=== PATIENT | female | born 2000 | race Caucasian/White ===

== ENCOUNTER 2022-06-26 08:57 | Inpatient (IN) ==
[2022-06-26] MEDS ORDERED: SODIUM CHLORIDE 0.9% 1000ML 1,000 ML IV ONE ×2 (09:06→10:48)
[2022-06-26] MEDS ORDERED: ONDANSETRON INJ 2 MG/ML 2 ML VIAL IV STA (09:51)
[2022-06-26 10:04] LABS: Basophils # (auto) 0.05 K/uL (0-0.2); Basophils % (auto) 0.9 %; Eosinophils # (auto) 0.25 K/uL (0-0.50); Eosinophils % (auto) 4.7 %; Hematocrit (blood only) 42.1 % (34.1-44.9); Hemoglobin 15.1 g/dl (12.0-16.0); Immature Granulocytes # (auto) 0.01 K/uL (0.00-0.02); Immature Granulocytes % (auto) 0.2 %; Lymphocytes # (auto) 1.85 K/uL (1.2-3.4); Lymphocytes % (auto) 34.7 %; Mean Corpuscular Hgb Conc 35.9 g/dL (32.0-36.0); Mean Corpuscular Volume 89.2 fL (80.0-100.0); Monocytes # (auto) 0.32 K/uL (0.24-0.82); Neutrophils # (auto) 2.85 K/uL (1.4-6.5); Neutrophils % (auto) 53.5 %; Platelet Count 226 K/uL (130-400); RDW Coefficient of Variation 11.3 % (11.5-14.5); RDW Standard Deviation 36.4 fL (36.4-46.3); Red Blood Count 4.72 M/uL (3.93-5.22); White Blood Count 5.33 K/ul (4.8-10.8)
[2022-06-26 10:06] LABS: Appearance Urine Clear (Clear); Bilirubin Urine Negative (Negative); Blood Urine Negative (Negative); Color Urine Yellow; Glucose Urine UA 3+ (Negative); Ketones Urine 4+ (Negative); Leukocyte Esterase Urine Negative (Negative); Nitrite Urine Negative (Negative); Protein Urine Negative (Negative); Specific Gravity Urine 1.043 (1.000-1.030); Urobilinogen Urine Negative (Negative)
--- NOTE | 2022-06-26 10:09 | Emergency Department Note ---
History of Present Illness General Chief complaint: Hyperglycemia Stated complaint: HIGH GLUCOSE LEVELS Time Seen by Provider: 06/26/22 09:05 History of Present Illness Provider complaint: Hyperglycemia Onset (ago): month(s) 1 Maximum Pain Intensity: 3 Associated symptoms: + loss of appetite, + malaise and + nausea/vomiting (No vomiting only nausea); no chest pain, no cough, no fever/chills, no headaches or no shortness of breath 22-year-old female presents emergency department for hyperglycemia. Patient reports that over the last month she has been having increased thirst, polyuria, and nausea. Patient states she went to [facility] today and they checked her blood sugar and it was greater than 500 so they referred her to the emergency department. No history of diabetes. No fevers. Patient reports nausea but no vomiting. No chest pain or difficulty breathing. No abdominal pain. Home Medications Medication Instructions Recorded Confirmed Type norethindrone 1 mg-ethinyl 1 tab PO DAILY 06/26/22 06/26/22 History estradiol 20 mcg (21)-iron 75 mg (7) tablet (08/12 (28)) Allergies Allergy/AdvReac Type Severity Reaction Status Date / Time aspirin Allergy Swelling Unverified 06/26/22 11:05 of Lip/Tongue/Throat cephalexin [From Keflex] AdvReac Hives Unverified 06/26/22 11:05 Past Med/Surg History Medical History No pertinent family history No pertinent past medical history Surgical History No pertinent past surgical history Social History Smoking Status: Never smoker Hx Alcohol Use: No Preferred Language: Slovak Communication Ability: Effective Principal Administrative Clerk Required: No Beliefs That Will Affect Care: None Current Living Situation: Other Other Information That Helps Us Care for You: No Feels Safe at Home: Yes Safety Concerns: Feels Safe At This Time Assistive Devices: None Review of Systems A total of 10 systems reviewed and were otherwise negative Physical Exam Vital Signs Vital Signs - 24 hr 06/26/22 09:01 06/26/22 09:46 06/26/22 09:47 Temperature 36.9 C Temperature Source Temporal Artery Scan Pulse Rate 103 H Pulse Rate [Finger] 71 Pulse Rhythm Regular Pulse Strength Normal Respiratory Rate 20 18 Respiratory Effort / Characteristics Non-Labored Spontaneous Respiratory Depth Normal Respiratory Pattern Regular Blood Pressure 124/92 Blood Pressure [Left Arm] 114/77 Blood Pressure Mean 102 Blood Pressure Mean [Left Arm] 89 Blood Pressure Position Sitting Pulse Oximetry 99 100 100 Oxygen Delivery Method Room Air Room Air Room Air Sepsis Recent Fever Within 48 Hours No Sepsis New/Unexplained Change in Mental Status No Sepsis Action Taken by Nursing No Action Required 06/26/22 10:14 Temperature Temperature Source Pulse Rate Pulse Rate [Finger] 75 Pulse Rhythm Pulse Strength Respiratory Rate 18 Respiratory Effort / Characteristics Respiratory Depth Respiratory Pattern Blood Pressure Blood Pressure [Left Arm] 117/74 Blood Pressure Mean Blood Pressure Mean [Left Arm] 88 Blood Pressure Position Pulse Oximetry 98 Oxygen Delivery Method Room Air Sepsis Recent Fever Within 48 Hours Sepsis New/Unexplained Change in Mental Status Sepsis Action Taken by Nursing Physical Exam GENERAL: She is oriented to person, place, and time. She appears well-developed and well-nourished. She does not appear distressed. HENT: Exam performed. -Head: Normocephalic and atraumatic. -Right Ear: External ear normal. No mastoid tenderness. -Left Ear: External ear normal. No mastoid tenderness. -Mouth/Throat: The oropharynx is clear and moist. No trismus in the jaw. No dental abscesses or uvula swelling. No oropharyngeal exudate or tonsillar absces ses. EYES: Conjunctivae and EOM are normal. Pupils are equal, round, and reactive to light. Right eye exhibits no discharge. Left eye exhibits no discharge. No scleral icterus. NECK: Normal range of motion. Neck supple. No JVD present. No spinous process tenderness present. No carotid bruit present. No rigidity. No tracheal deviation and normal range of motion present. No Brudzinski's sign and no Kernig's sign noted. CV: Normal rate, regular rhythm, normal heart sounds and intact distal pulses. There is no peripheral edema. Palpable radial pulses bue. PULM/CHEST: Effort normal and breath sounds normal. No respiratory distress. No stridor. She has no wheezes. She has no rales. -Chest Wall: She exhibits no tenderness. ABD: The abdomen is soft. Bowel sounds are normal. She has no distension. No mass is present. There is no tenderness. There is no rebound, no guarding, no Sharp's sign and no tenderness at McBurney's point. Rovsig negative MUSC/SKEL: Normal range of motion. There is no peripheral edema, tenderness or deformity. LYMPH: No cervical adenopathy. NEURO: She is alert and oriented to person, place, and time. She has normal strength. No cranial nerve deficit or sensory deficit. Coordination and gait normal. GCS eye subscore is 4. GCS verbal subscore is 5. GCS motor subscore is 6. Cerebellar tests wnl. SKIN: Skin is warm and dry. She is not diaphoretic. PSYCH: She has a normal mood and affect. Behavior is normal. Judgment and thought content normal. Course Course 904: The patient was evaluated in room C5. A complete history and physical exam was performed Cardiac monitoring: An order was placed for continuous cardiac monitoring. The monitor shows a rate of 70 with sinus rhythm 1100: Vital signs stable. Labs show a glucose of 549 and a gap of 16. Patient will be given more IV fluids. Potassium 3.7. 1 L normal saline with 20 mill equivalents KCl also ordered for the patient. Patient be started on insulin drip 0.1 units/kg/h. Patient will be admitted to the [facility] team discussed with Reginaldo Maria who states to admit to Dr. Watts. Administered Medications Insulin Human Regular 250 (units/ Sodium Chloride) 250 mls @ 1.9 mls/hr IV .[facility]H [facility]; Protocol Stop: 07/26/22 10:59 Last Titration: 06/26/22 14:33 Dose: 2.7 units/hr, 2.7 mls/hr Documented By: MARIANO Co-signed By: RENETTA Titration: 06/26/22 14:04 Dose: 1.9 units/hr, 1.9 mls/hr Documented By: MARIANO Co-signed By: DAA Titration: 06/26/22 13:33 Dose: 0 units/hr, 0 mls/hr Documented By: MARIANO Co-signed By: DAA Titration: 06/26/22 13:10 Dose: 3.2 units/hr, 3.2 mls/hr Documented By: MARIANO Co-signed By: DAA Titration: 06/26/22 12:45 Dose: 0 units/hr, 0 mls/hr Documented By: MARIANO Co-signed By: VANESSA Admin: 06/26/22 11:23 Dose: 5.3 units/hr, 5.3 mls/hr Documented By: LISANDRA Co-signed By: SHONDA Potassium Chloride/Dextrose/Sod Cl (D5w And 1/2nss + 20meq Kcl) 20 meq in 1,000 mls @ 125 mls/hr IV .Q8H RICCO Stop: 07/26/22 12:59 Last Admin: 06/26/22 13:18 Dose: 125 mls/hr Documented By: MARIANO Insulin Aspart (Insulin Aspart Per Unit) 0 units SC ACHS RICCO Stop: 07/26/22 16:29 Last Admin: 06/26/22 12:38 Dose: Not Given Documented By: MARIANO Discontinued Medications Sodium Chloride (Nss 1000ml) 1,000 mls @ 999 mls/hr IV .Q1H1M ONE Stop: 06/26/22 10:06 Last Infusion: 06/26/22 10:18 Dose: 0 mls/hr Documented By: Admin: 06/26/22 09:36 Dose: 999 mls/hr Documented By: MEGHAN Sodium Chloride (Nss 1000ml) 1,000 mls @ 999 mls/hr IV .Q1H1M ONE Stop: 06/26/22 11:48 Last Infusion: 06/26/22 12:49 Dose: 0 mls/hr Documented By: Admin: 06/26/22 11:05 Dose: 999 mls/hr Documented By: LISANDRA Potassium Chloride/Sodium Chloride (Normal Saline W/20 Meq Kcl) 20 meq in 1,000 mls @ 125 mls/hr IV .Q8H RICCO; Protocol Stop: 07/26/22 10:59 Last Infusion: 06/26/22 13:35 Dose: 0 mls/hr Documented By: Admin: 06/26/22 11:05 Dose: 125 mls/hr Documented By: LISANDRA Insulin Aspart (Insulin Aspart Per Unit) 0 units SC ACHS RICCO Stop: 07/26/22 11:29 Last Admin: 06/26/22 12:37 Dose: Not Given Documented By: MARIANO Mistiaraaneous (Stat Insulin Drip) 1 each N/A NOW STA Stop: 06/26/22 10:58 Last Admin: 06/26/22 11:33 Dose: 1 each Documented By: AY Miscellaneous (Dka Goal Range 150-250 Mg/Dl) 1 each N/A ONE ONE Stop: 06/26/22 11:33 Last Admin: 06/26/22 12:38 Dose: 1 each Documented By: MARIANO Ondansetron HCl (Ondansetron Inj 2 Mg/Ml 2 Ml Vial) 4 mg IV NOW STA Stop: 06/26/22 09:52 Last Admin: 06/26/22 10:11 Dose: 4 mg Documented By: MEGHAN Critical Care Time Critical Care Time: Yes Total Critical Care Time: 41 I have personally spent greater than 41 minutes of critical care time in the direct management of this patient. This includes bedside care, interpretation of diagnostic studies, and testing, discussion with consultants, patient, and family members, and other required patient management activities. This 41 minutes is in excess of all separately billable procedures. Medical Decision Making Laboratory Data Result diagrams: 06/26/22 09:40 06/26/22 11:58 Lab Results 06/26/22 06/26/22 06/26/22 Range/Units 09:08 09:40 09:40 WBC 5.33 (4.8-10.8) K/ul RBC 4.72 (3.93-5.22) M/uL Hgb 15.1 (12.0-16.0) g/dl Hct 42.1 (34.1-44.9) % MCV 89.2 (80.0-100.0) fL MCH 32.0 (25.0-34.0) pg MCHC 35.9 (32.0-36.0) g/dL RDW Std Deviation 36.4 (36.4-46.3) fL RDW Coeff of John 11.3 L (11.5-14.5) % Plt Count 226 (130-400) K/uL MPV 10.0 (9.4-12.3) fL Immature Gran % (Auto) 0.2 % Neut % (Auto) 53.5 % Lymph % (Auto) 34.7 % Gooding % (Auto) 6.0 % Eos % (Auto) 4.7 % Baso % (Auto) 0.9 % Neut # (Auto) 2.85 (1.4-6.5) K/uL Lymph # (Auto) 1.85 (1.2-3.4) K/uL Gooding # (Auto) 0.32 (0.24-0.82) K/uL Eos # (Auto) 0.25 (0-0.50) K/uL Baso # (Auto) 0.05 (0-0.2) K/uL Immature Gran # (Auto) 0.01 (0.00-0.02) K/uL Sodium 131 L (136-145) mmol/L Potassium 3.7 (3.5-5.1) mmol/L Chloride 96 L (98-107) mmol/L Carbon Dioxide 19 L (21-32) mmol/L Anion Gap 16 H (3-11) BUN 13 (6-23) mg/dl Creatinine 0.91 (0.6-1.2) mg/dl Est Cr Clr Drug Dosing 80.9 ml/min Est GFR ( Amer) 104.5 ml/min Est GFR (Non-Af Amer) 90.2 ml/min BUN/Creatinine Ratio 14.3 (10-20) Glucose 549 H* (70-99(Fasting)) mg/dl POC Glucose 564 H* (70-99) mg/dl Calcium 9.2 (8.5-10.1) mg/dl Urine Color Urine Appearance (Clear) Urine pH (4.5-7.5) Ur Specific [place] (1.000-1.030) Urine Protein (Negative) Urine Glucose (UA) (Negative) Urine Ketones (Negative) Urine Blood (Negative) Urine Nitrite (Negative) Urine Bilirubin (Negative) Urine Urobilinogen (Negative) Ur Leukocyte Esterase (Negative) POC Ur Test (NEG) SARS-CoV-2, RNA, NAAT (NEGATIVE) 06/26/22 06/26/22 06/26/22 Range/Units 09:40 09:40 10:20 WBC (4.8-10.8) K/ul RBC (3.93-5.22) M/uL Hgb (12.0-16.0) g/dl Hct (34.1-44.9) % MCV (80.0-100.0) fL MCH (25.0-34.0) pg MCHC (32.0-36.0) g/dL RDW Std Deviation (36.4-46.3) fL RDW Coeff of John (11.5-14.5) % Plt Count (130-400) K/uL MPV (9.4-12.3) fL Immature Gran % (Auto) % Neut % (Auto) % Lymph % (Auto) % Gooding % (Auto) % Eos % (Auto) % Baso % (Auto) % Neut # (Auto) (1.4-6.5) K/uL Lymph # (Auto) (1.2-3.4) K/uL Gooding # (Auto) (0.24-0.82) K/uL Eos # (Auto) (0-0.50) K/uL Baso # (Auto) (0-0.2) K/uL Immature Gran # (Auto) (0.00-0.02) K/uL Sodium (136-145) mmol/L Potassium (3.5-5.1) mmol/L Chloride (98-107) mmol/L Carbon Dioxide (21-32) mmol/L Anion Gap (3-11) BUN (6-23) mg/dl Creatinine (0.6-1.2) mg/dl Est Cr Clr Drug Dosing ml/min Est GFR ( Amer) ml/min Est GFR (Non-Af Amer) ml/min BUN/Creatinine Ratio (10-20) Glucose (70-99(Fasting)) mg/dl POC Glucose (70-99) mg/dl Calcium (8.5-10.1) mg/dl Urine Color Yellow Urine Appearance Clear (Clear) Urine pH 5.0 (4.5-7.5) Ur Specific [place] 1.043 H (1.000-1.030) Urine Protein Negative (Negative) Urine Glucose (UA) 3+ H (Negative) Urine Ketones 4+ H (Negative) Urine Blood Negative (Negative) Urine Nitrite Negative (Negative) Urine Bilirubin Negative (Negative) Urine Urobilinogen Negative (Negative) Ur Leukocyte Esterase Negative (Negative) POC Ur Test NEG (NEG) SARS-CoV-2, RNA, NAAT NEGATIVE (NEGATIVE) 06/26/22 Range/Units 11:00 WBC (4.8-10.8) K/ul RBC (3.93-5.22) M/uL Hgb (12.0-16.0) g/dl Hct (34.1-44.9) % MCV (80.0-100.0) fL MCH (25.0-34.0) pg MCHC (32.0-36.0) g/dL RDW Std Deviation (36.4-46.3) fL RDW Coeff of John (11.5-14.5) % Plt Count (130-400) K/uL MPV (9.4-12.3) fL Immature Gran % (Auto) % Neut % (Auto) % Lymph % (Auto) % Gooding % (Auto) % Eos % (Auto) % Baso % (Auto) % Neut # (Auto) (1.4-6.5) K/uL Lymph # (Auto) (1.2-3.4) K/uL Gooding # (Auto) (0.24-0.82) K/uL Eos # (Auto) (0-0.50) K/uL Baso # (Auto) (0-0.2) K/uL Immature Gran # (Auto) (0.00-0.02) K/uL Sodium (136-145) mmol/L Potassium (3.5-5.1) mmol/L Chloride (98-107) mmol/L Carbon Dioxide (21-32) mmol/L Anion Gap (3-11) BUN (6-23) mg/dl Creatinine (0.6-1.2) mg/dl Est Cr Clr Drug Dosing ml/min Est GFR ( Amer) ml/min Est GFR (Non-Af Amer) ml/min BUN/Creatinine Ratio (10-20) Glucose (70-99(Fasting)) mg/dl POC Glucose 392 H* (70-99) mg/dl Calcium (8.5-10.1) mg/dl Urine Color Urine Appearance (Clear) Urine pH (4.5-7.5) Ur Specific [place] (1.000-1.030) Urine Protein (Negative) Urine Glucose (UA) (Negative) Urine Ketones (Negative) Urine Blood (Negative) Urine Nitrite (Negative) Urine Bilirubin (Negative) Urine Urobilinogen (Negative) Ur Leukocyte Esterase (Negative) POC Ur Test (NEG) SARS-CoV-2, RNA, NAAT (NEGATIVE) ECG Data Indication: + tachycardia Rate (beats per minute): 78 Rhythm: + normal sinus ECG Intervals/blocks: + Normal QRS, + Normal UT and + Normal QT-c ECG ST segments: + Normal ST segments MDM Narrative Vital signs stable. Labs show a glucose of 549 and a gap of 16. Patient will be given more IV fluids. Potassium 3.7. 1 L normal saline with 20 mill equivalents KCl also ordered for the patient. Patient be started on insulin drip 0.1 units/kg/h. Patient will be admitted to the [facility] team discussed with Reginaldo Maria who states to admit to Dr. Watts. Impression & Plan DKA (diabetic ketoacidosis) Discharge Plan Visit Data Chief Complaint: Hyperglycemia Stated Complaint: HIGH GLUCOSE LEVELS ED Provider: Lui Aguillon Discharge Problem: DKA (diabetic ketoacidosis) Patient Disposition: Admitted As Inpatient Discharge Instructions Interventions: ED Discharge Assessment Last Done: 06/26/22 12:05
[2022-06-26 10:36] LABS: BUN Creatinine Ratio 14.3 (10-20); Calcium 9.2 mg/dl (8.5-10.1); Creatinine Clr Calc Pharmacy 80.9 ml/min; Est GFR (African American) 104.5 ml/min; Est GFR (Non-African American) 90.2 ml/min; Potassium 3.7 mmol/L (3.5-5.1)
[2022-06-26] MEDS ORDERED: DEXTROSE 50% 50 ML SYRINGE IV PRN (10:57)
[2022-06-26] MEDS ORDERED: GLUCAGON FOR INJ 1 MG VIAL SQ PRN (10:57)
[2022-06-26] MEDS ORDERED: CARBOHYDRATES FOR HYPOGLYCEMIA PO PRN (10:57)
[2022-06-26] MEDS ORDERED: GLUCOSE 10 TAB/TUBE PO PRN (10:57)
[2022-06-26] MEDS ORDERED: GLUCOSE 40% GEL 15 GM TUBE PO PRN (10:57)
[2022-06-26] MEDS ORDERED: STAT INSULIN DRIP STA (10:57)
[2022-06-26] MEDS ORDERED: NSS + 20MEQ KCL 20 MEQ/1,000 ML BAG IV SCH (11:00)
--- NOTE | 2022-06-26 11:08 | History & Physical Report ---
Date of Service June 26, 2022 Assessment & Plan (1) DKA (diabetic ketoacidosis): Plan: -Admit to the PCU for now -Patient is currently afebrile, hemodynamically stable, stable on RA and appears well clinically -No history of DM previously or issues with blood glucose in the past, does have known DM I on her mother's side, no known family history on her father's side -She does not appear to have any infectious source at this time -DKA protcol in place, patient currently on insulin drip, NSS + 20 meq KCL running at 125 mL/hr -Initial BSG noted to be 549, AG of 16 with bicarb of 19, will get VBG for further assessment -Will order TSH now, will also order initial autoantibody screens -Monitor BMP, Mag, phos, -Pharmacy Glycemic protocol consult place for assistance with management and future transition to sub-q insulin -adaptive physical educator consult placed -Will start with clear liquids and can advance diet as able (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 Plan The patient was discussed wtih Dr. Callaway at the time of the admission History of Present Illness Chief Complaint: Hyperglycemia Primary Care Provider: NO PCP Salomon is a 22 year old female with no previous significant PMH who presented to the [facility] ED from [facility] this am after being found to have a critically high glucose level. In the ED the patient was found to be afebrile, hemodynamically stable and stable on RA. Labs were remarkable for a CBC WNL, glucose of 549, stable renal function, corrected sodium of 138, potassium of 3.7, AG of 16, bicarb of 19, chloride of 96, and UA showing 4+ ketones and 3+ glucose. Prior to admission the patient was give a 1L NSS bolus, started on an NSS infusion with potassium, an insulin drip, and 4 mg IV zofran. At the time of the exam the patient was resting comfortably in bed in no acute distress. She states that for the past 3-4 weeks she has been experiencing progressive polydipsia, polyuria, polyphagia, nausea, vomiting, and feeling "off". She does not have a history of significant PMH, has not had a recent illness, and is only on control for outpatient medications. Her maternal grandfather does have DM I, her father is adopted so they do not know his past family history. This am she went to [facility] for her ongoing symptoms and they found her glucose to be critically high which is why they sent her to the ED. At the time of the exam the patient states that she is feeling well, she has no complaints. I explained that we will start treatment with the insulin infusion and IV fluids until we correct her acidosis and anion gap, then will eventually transition her to basal/bolus sub-Q insulin. I explained that she will be seen by one of our diabetic educators who will help her acclimate to using basal/bolus insulin. Please refer to Dr. Callaway's attestation for any changes to the treatment plan. Allergies Allergy/AdvReac Type Severity Reaction Status Date / Time aspirin Allergy Swelling Unverified 06/26/22 11:05 of Lip/Tongue/Throat cephalexin [From Keflex] AdvReac Hives Unverified 06/26/22 11:05 Home Medications Medication Instructions Recorded Confirmed Type norethindrone 1 mg-ethinyl 1 tab PO DAILY 06/26/22 06/26/22 History estradiol 20 mcg (21)-iron 75 mg (7) tablet (08/12 (28)) Past Med/Surg History Medical History No pertinent family history No pertinent past medical history Surgical History No pertinent past surgical history Social History Smoking Status: Never smoker Hx Alcohol Use: No Preferred Language: Thai Communication Ability: Effective Life Skills Educator Required: No Beliefs That Will Affect Care: None Current Living Situation: Other Other Information That Helps Us Care for You: No Feels Safe at Home: Yes Safety Concerns: Feels Safe At This Time Assistive Devices: None Review of Systems Review of Systems: Denies current fever, chills, headache, changes in vision, hearing, taste, and smell, chest pain, SOB, cough, abdominal pain, nausea, vomiting, diarrhea, hematemesis, melena, dysuria, hematuria, and recent falls. All systems have been reviewed and are otherwise negative. Physical Exam Physical Exam: Physical Exam: General: In no acute distress, stated age, well-nourished, good hygiene, non- toxic appearing HEENT: Normocephalic, atraumatic, no scleral icterus, pupils around round, symmetrical, and reactive to light, dry mucus membranes, trachea midline, no thyromegaly Chest/Pulm: No respiratory distress, symmetrical chest expansion, clear breath sounds throughout Cardiac: RRR, no murmurs noted Abdomen: Negative for ascites and bruising, normoactive bowel sounds, soft, non-tender to palpation throughout Musculoskeletal: Symmetrical and without signs of acute trauma, upper and lower extremities with full ROM, no atrophy, spasticity, or flaccidity Extremities: Radial, dorsalis pedis, and posterior tibial pulses are intact and symmetrical, no edema noted in the BL LE's Skin: Warm, dry, no rashes , lesions, or scars noted Neuro: Alert and oriented to person, place, month, year, and president, no focal defects, CN II-XII tested and intact, finger to nose test negative, no tremors noted Psych: No acute distress, calm and cooperative during the exam Results & Data Results & Data ([facility]) Vital Signs (Past 12 Hours) Vital Signs Temp Pulse Pulse Resp BP BP Pulse Ox 06/26/22 10:14 75 18 117/74 98 06/26/22 09:47 71 18 114/77 100 06/26/22 09:46 100 06/26/22 09:01 36.9 C 103 H 20 124/92 99 O2 Del Method 06/26/22 10:14 Room Air 06/26/22 09:47 Room Air 06/26/22 09:46 Room Air 06/26/22 09:01 Room Air Laboratory Results Abnormal lab results 06/26/22 06/26/22 06/26/22 Range/Units 09:40 09:40 09:40 RDW Coeff of John 11.3 L (11.5-14.5) % Sodium 131 L (136-145) mmol/L Chloride 96 L (98-107) mmol/L Carbon Dioxide 19 L (21-32) mmol/L Anion Gap 16 H (3-11) Glucose 549 H* (70-99(Fasting)) mg/dl Ur Specific [place] 1.043 H (1.000-1.030) Urine Glucose (UA) 3+ H (Negative) Urine Ketones 4+ H (Negative) ECG Additional Comments: No ECG available at the time of the admission, will obtain one now Code Status & VTE Plan Code Status Full Code VTE Prophylaxis Plan VTE Prophylaxis will be ordered: Yes Supervising Physician Co-Signing Physician Notes Patient was seen and examined independently I discussed the case with Reginaldo JOSEPH I reviewed pertinent past medical social family history and also the plan of care and agree with the plan of care. Patient states she presented to urgent care because she was thirsty all the time. She is found to have significantly high glucose sent to the emergency department where she is found to have DKA. Her anion gap is modest being 16 her bicarb is 19 glucose however was 549. Her hyponatremia is likely secondary to her elevated glucose Physical exam is unrevealing she is not tachypneic has no Kussmaul respiration Patient will need to have diabetic education for basal bolus insulin conversion and sending laboratories to determine if she makes any residual insulin will need outpatient follow-up with endocrinology post admission ECG does have changes of WPW with delta wave and will have EP evaluation and Check echo Any exceptions will be noted below PG Care Time/CCT Total # of Minutes Spent Total Time Spent with Patient: Total time spent is greater than 50% in coordination of care (as documented) at patient's floor/unit and/or counseling patient: Coding Level of Care Code 55277 Initial Inpt Care Lvl 2 Medical Decision Making Moderate Complexity Diagnoses DKA (diabetic ketoacidosis) E11.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
[2022-06-26] MEDS: INSULIN REGULAR 250 UNITS in SODIUM CHLORIDE 0.9% 247.5 ML IV SCH (11:23)
[2022-06-26] MEDS ORDERED: INSULIN ASPART PER UNIT SC SCH (11:30)
[2022-06-26] MEDS ORDERED: PHARMACY GLYCEMIC MGMT CONSULT PRN ×2 (11:31→11:32)
[2022-06-26] MEDS ORDERED: DKA GOAL RANGE 150-250 mg/dl ONE (11:32)
[2022-06-26 12:02] LABS: Base Excess VBG -7.9 mEq/L; HCO3 VBG 18 mmol/L; Oxygen Saturation VBG 62.7 %; PCO2 VBG 36 mmHg (38-50); PO2 VBG 36 mmHg
[2022-06-26] MEDS ORDERED: ACETAMINOPHEN 325 MG TAB PO PRN (12:22)
[2022-06-26] MEDS: INSULIN ASPART PER UNIT SC SCH ×2 (12:38→20:45)
[2022-06-26] MEDS ORDERED: FLUARIX QUADRIVALENT 0.5 ML SYR IM ONE (13:07)
[2022-06-26 13:14] LABS: BUN Creatinine Ratio 17.2 (10-20); Creatinine Clr Calc Pharmacy 117.2 ml/min; Est GFR (African American) 147.8 ml/min; Est GFR (Non-African American) 127.6 ml/min; Phosphorus 3.3 mg/dl (2.5-4.9); Potassium 4.1 mmol/L (3.5-5.1)
[2022-06-26] MEDS: D5W AND 1/2NSS + 20MEQ KCL 20 MEQ/1,000 ML BAG IV SCH ×2 (13:18→21:35)
[2022-06-26 16:21] LABS: Phosphorus 2.3 mg/dl (2.5-4.9)
[2022-06-26 16:49] LABS: BUN Creatinine Ratio 12.7 (10-20); Calcium 7.7 mg/dl (8.5-10.1); Creatinine Clr Calc Pharmacy 119.1 ml/min; Est GFR (African American) 148.6 ml/min; Est GFR (Non-African American) 128.2 ml/min; Magnesium 1.5 mg/dl (1.7-2.4); Potassium 3.5 mmol/L (3.5-5.1)
[2022-06-26] MEDS ORDERED: POTASSIUM PHOS 3 MMOL/1 ML INFUSION IV STA (17:22)
[2022-06-26] MEDS ORDERED: POTASSIUM PHOSPHATE 21 MMOL in DEXTROSE 5% 500 ML IV ONE (17:30)
[2022-06-26] MEDS: MAGNESIUM SULFATE / D5W 1 GM/100 ML BAG IV SCH ×2 (17:43→19:55)
[2022-06-26 20:38] LABS: Anion Gap 4 (3-11); BUN Creatinine Ratio 12.1 (10-20); Blood Urea Nitrogen 7 mg/dl (6-23); Calcium 7.7 mg/dl (8.5-10.1); Carbon Dioxide 22 mmol/L (21-32); Chloride 108 mmol/L (98-107); Creatinine Clr Calc Pharmacy 129.3 ml/min; Est GFR (African American) > 150.0 ml/min; Est GFR (Non-African American) 131.8 ml/min; Glucose 184 mg/dl (70-99(Fasting)); Potassium 3.3 mmol/L (3.5-5.1); Sodium 134 mmol/L (136-145)
[2022-06-27 00:09] LABS: Anion Gap 3 (3-11); BUN Creatinine Ratio 8.6 (10-20); Blood Urea Nitrogen 5 mg/dl (6-23); Calcium 7.5 mg/dl (8.5-10.1); Carbon Dioxide 23 mmol/L (21-32); Chloride 108 mmol/L (98-107); Creatinine Clr Calc Pharmacy 129.3 ml/min; Est GFR (African American) > 150.0 ml/min; Est GFR (Non-African American) 131.8 ml/min; Glucose 135 mg/dl (70-99(Fasting)); Phosphorus 3.2 mg/dl (2.5-4.9); Potassium 3.5 mmol/L (3.5-5.1); Sodium 134 mmol/L (136-145)
[2022-06-27 05:03] LABS: Hematocrit (blood only) 32.9 % (34.1-44.9); Hemoglobin 11.9 g/dl (12.0-16.0); Mean Corpuscular Hgb Conc 36.2 g/dL (32.0-36.0); Mean Corpuscular Volume 88.4 fL (80.0-100.0); Mean Platelet Volume 9.7 fL (9.4-12.3); Platelet Count 186 K/uL (130-400); RDW Coefficient of Variation 11.4 % (11.5-14.5); RDW Standard Deviation 36.7 fL (36.4-46.3); Red Blood Count 3.72 M/uL (3.93-5.22); White Blood Count 6.93 K/ul (4.8-10.8)
[2022-06-27 05:21] LABS: Anion Gap 2 (3-11); BUN Creatinine Ratio 7.3 (10-20); Blood Urea Nitrogen 4 mg/dl (6-23); Calcium 7.5 mg/dl (8.5-10.1); Carbon Dioxide 24 mmol/L (21-32); Chloride 108 mmol/L (98-107); Creatinine Clr Calc Pharmacy 136.4 ml/min; Est GFR (African American) > 150.0 ml/min; Est GFR (Non-African American) 134.1 ml/min; Glucose 195 mg/dl (70-99(Fasting)); Magnesium 1.9 mg/dl (1.7-2.4); Potassium 3.2 mmol/L (3.5-5.1); Sodium 134 mmol/L (136-145)
[2022-06-27] MEDS: D5W AND 1/2NSS + 20MEQ KCL 20 MEQ/1,000 ML BAG IV SCH (05:38)
[2022-06-27 06:43] LABS: Estimated Average Glucose 318 mg/dl; Hemoglobin A1C 12.7 % (4.5-5.6)
[2022-06-27] MEDS ORDERED: LANTUS PER UNIT CHARGE SQ ONE (07:30)
[2022-06-27] MEDS: INSULIN ASPART PER UNIT SC SCH ×4 (07:59→20:46)
[2022-06-27] MEDS: JUNEL FE PO SCH (08:00)
[2022-06-27] MEDS: INSULIN REGULAR 250 UNITS in SODIUM CHLORIDE 0.9% 247.5 ML IV SCH (08:01)
[2022-06-27 08:27] LABS: Anion Gap 3 (3-11); BUN Creatinine Ratio 7.4 (10-20); Blood Urea Nitrogen 4 mg/dl (6-23); Calcium 7.7 mg/dl (8.5-10.1); Carbon Dioxide 24 mmol/L (21-32); Chloride 109 mmol/L (98-107); Creatinine Clr Calc Pharmacy 138.9 ml/min; Est GFR (African American) > 150.0 ml/min; Est GFR (Non-African American) 134.9 ml/min; Glucose 134 mg/dl (70-99(Fasting)); Magnesium 1.8 mg/dl (1.7-2.4); Phosphorus 2.9 mg/dl (2.5-4.9); Potassium 3.4 mmol/L (3.5-5.1); Sodium 136 mmol/L (136-145)
--- NOTE | 2022-06-27 10:28 | Cardiology Consultation ---
Date of Consultation June 27, 2022 Assessment & Plan (1) Abnormal EKG: (2) WPW (Cfpeg-Sjurixtte-Izhjr syndrome): Liberty is a 22-year-old female who was admitted to [facility] on 06/26/22 with newly diagnosed Type 1 Diabetes Mellitus ad Diabetic Ketoacidosis. Patient was referred from [facility] after the patient presented progressive polydipsia, polyuria, polyphagia, nausea, vomiting, and feeling "off" over the preceding 3 to 4 weeks. Patient was found to have a markedly elevated glucose level > 500 mg/dL. In the ER the patient was found to be afebrile and hemodynamically stable. Labs were remarkable for a normal CBC, elevated glucose of 549 mg/dL, normal renal function, sodium of 138 mmol/L, potassium of 3.7 mmol/L, Anion Gap of 16, bicarb of 19, chloride of 96, normal magnesium, and UA showing 4+ ketones and 3+ glucose. Prior to admission the patient was given a 1L NSS bolus, started on an NSS infusion with KCl, an insulin drip, and 4 mg IV Zofran -- with improvement in her symptoms. Her blood sugars have improved dramatically, the patient is feeling much better overall, and she is in the process of learning about type 1 diabetes management. Her EKG 06/26/22 shows a NSR at 78 bpm with a delta wave/pre-excitation/possible WPW Syndrome. Patient denies any history of tachycardia, tachy-palpitations, palpitations, or fast heart rates. She stated that "if her heart races, I do not even know it or feel anything." Patient is generally very active and has not experienced any limiting cardiopulmonary symptoms at any time. Patient has not experienced any angina pectoris or anginal equivalent symptoms, overt signs or symptoms of heart failure, nor has she had any symptoms suggestive of dysrhythmia. She has not had any symptoms concerning for stroke or mini stroke. Patient has remained hemodynamically stable throughout this hospitalization and has not had any arrhythmias on monitoring. Her laboratories are improving, and her blood sugar has come down. I showed the patient her EKG and discussed the abnormality with both the patient and her mother. Her EKG shows a delta wave consistent with pre- excitation/possible WPW. We talked about what Oxjic-Vijgorihj-Ehjwj syndrome is, we discussed accessory bypass tract, and we discussed typical management strategies. As the patient is completely asymptomatic and has not experienced any tachycardias or palpitations for that matter -- we will continue to observe for the time being. We discussed medications that can be used if she were to develop a tachyarrhythmia and we also discussed the possibility of an EP study with ablation if it is necessary in the future. Patient and her mother verb alized understanding of these discussions. All the patient and her mother's questions were answered to their satisfaction. Patient will focus on getting her blood sugars controlled for the time being. We recommend the patient follow-up with [facility] in 3 to 4 weeks. Patient agrees with this plan. (3) Type 1 diabetes mellitus: (4) DKA (diabetic ketoacidosis): History of Present Illness Reason for Consultation: 1. Pre-excitation pattern on EKG, possible WPW Syndrome. Requesting Physician: Aidan Hernandez MD Attending Physician: Rey Blake MD History of Present Illness Liberty is a 22-year-old female who was admitted to [facility] on 06/26/22 with newly diagnosed Type 1 Diabetes Mellitus ad Diabetic Ketoacidosis. Patient was referred from [facility] after the patient presented progressive polydipsia, polyuria, polyphagia, nausea, vomiting, and feeling "off" over the preceding 3 to 4 weeks. Patient was found to have a markedly elevated glucose level > 500 mg/dL. In the ER the patient was found to be afebrile and hemodynamically stable. Labs were remarkable for a normal CBC, elevated glucose of 549 mg/dL, normal renal function, sodium of 138 mmol/L, potassium of 3.7 mmol/L, Anion Gap of 16, bicarb of 19, chloride of 96, normal magnesium, and UA showing 4+ ketones and 3+ glucose. Prior to admission the patient was given a 1L NSS bolus, started on an NSS infusion with KCl, an insulin drip, and 4 mg IV Zofran -- with improvement in her symptoms. Her blood sugars have improved dramatically, the patient is feeling much better overall, and she is in the process of learning about type 1 diabetes management. Her EKG 06/26/22 shows a NSR at 78 bpm with a delta wave/pre-excitation/possible WPW Syndrome. Patient denies any prior cardiac history or prior cardiac events. She denies any history of tachycardia, tachy-palpitations, palpitations, or fast heart rates. She stated that "if her heart races, I do not even know it or feel anything." Patient is generally very active and has not experienced any limiting cardiopulmonary symptoms at any time. Patient specifically denies any exertional chest pain, heaviness, tightness, pressure, or discomfort. She denies any exertional neck, jaw, back, or arm pain. She denies any shortness of breath, unusual dyspnea on exertion, orthopnea, or PND. She denies any history of syncope or near syncope. Patient takes an oral contraceptive only, she has not had any recent changes in her medication. Past Medical History: -- No chronic medical illnesses until she was diagnosed with type 1 diabetes. -- No prior hospitalizations. -- No prior surgeries. Social History: -- Patient is a student at [employer]. -- She is not . -- She is from [place], [place]. -- Life-long non-smoker. -- No alcohol use. Family History: -- No family history of heart disease, autoimmune disorders, or diabetes. -- Both of her parents are alive and well without chronic medical illnesses. Allergies Allergy/AdvReac Type Severity Reaction Status Date / Time aspirin Allergy Swelling Unverified 06/26/22 11:05 of Lip/Tongue/Throat cephalexin [From Keflex] AdvReac Hives Unverified 06/26/22 11:05 Home Medications Medication Instructions Recorded Confirmed Type norethindrone 1 mg-ethinyl 1 tab PO DAILY 06/26/22 06/26/22 History estradiol 20 mcg (21)-iron 75 mg (7) tablet (08/12 (28)) Patient History Medical History No pertinent family history No pertinent past medical history Surgical History No pertinent past surgical history Social History Smoking Status: Never smoker Hx Alcohol Use: No Preferred Language: Gibraltarian Communication Ability: Effective Medical Services Coordinator Required: No Beliefs That Will Affect Care: None marital status: Single Current Living Situation: Other Other Information That Helps Us Care for You: No Feels Safe at Home: Yes Safety Concerns: Feels Safe At This Time Assistive Devices: None Review of Systems Review of Systems: 10 point ROS completed and is negative with the exception of what is mentioned in the HPI. Physical Exam Physical Exam: GENERAL: Patient in no acute distress. HEENT: Head is atraumatic, normocephalic. EOM's intact. Facies symmetric. No perioral cyanosis. NECK: No JVD. JVP is not elevated. Carotid upstrokes are + 2 bilaterally without obvious bruits. CHEST/LUNGS: Clear to auscultation throughout all lung keene. No wheezes, rales, or crackles. CVS: S1 and S2 are regular without murmurs, gallops, or rubs. PMI is nondisplaced. No lifts, heaves, or thrills. No abdominal aortic or renal bruits. ABDOMINAL EXAM: Bowel sounds are present. No masses, organomegaly, or tenderness. EXTREMITIES: No clubbing or cyanosis. No edema. Intact posterior tibial and radial pulses bilaterally. NEUROLOGIC EXAM: Patient is awake, alert, and oriented. Pleasant and cooperative. Answers questions appropriately. Speech is clear. EKG 06/26/22: -- NSR at 78 bpm with a delta wave consistent with WPW syndrome. -- No prior tracings available for comparison. [employer] TECHNICIAN: -- NSR at normal rates since admission. Results & Data ([facility]) Vital Signs (Past 12 Hours) Vital Signs Temp Pulse Resp BP Pulse Ox O2 Del Method 06/27/22 08:05 36.6 C 79 18 111/68 97 Room Air 06/27/22 03:09 36.4 C L 79 16 111/68 99 Room Air 06/26/22 22:49 37.4 C 78 16 116/79 98 Room Air Laboratory Results Laboratory Results - last 24 hr 06/26/22 06/26/22 06/26/22 09:08 10:20 11:00 WBC RBC Hgb Hct MCV MCH MCHC RDW Std Deviation RDW Coeff of John Plt Count MPV VBG pH VBG pCO2 VBG pO2 VBG HCO3 VBG O2 Saturation VBG Base Excess Sodium Potassium Chloride Carbon Dioxide Anion Gap BUN Creatinine Est Cr Clr Drug Dosing Est GFR ( Amer) Est GFR (Non-Af Amer) BUN/Creatinine Ratio Glucose POC Glucose 564 H* 392 H* Estimat Average Glucose Hemoglobin A1c Calcium Phosphorus Magnesium TSH Anti-RICARDO 65 Antibody Anti-IA2 Antibody Zinc Transporter 8 Ab Insulin Autoantibody SARS-CoV-2, RNA, NAAT NEGATIVE 06/26/22 06/26/22 06/26/22 11:48 11:58 11:58 WBC RBC Hgb Hct MCV MCH MCHC RDW Std Deviation RDW Coeff of John Plt Count MPV VBG pH 7.30 L VBG pCO2 36 L VBG pO2 36 VBG HCO3 18 VBG O2 Saturation 62.7 VBG Base Excess -7.9 Sodium 137 Potassium 4.1 Chloride 108 H Carbon Dioxide 19 L Anion Gap 10 BUN 11 Creatinine 0.64 Est Cr Clr Drug Dosing 117.2 Est GFR ( Amer) 147.8 Est GFR (Non-Af Amer) 127.6 BUN/Creatinine Ratio 17.2 Glucose 315 H* POC Glucose Estimat Average Glucose Hemoglobin A1c Calcium 8.0 L Phosphorus 3.3 Magnesium TSH 1.483 Anti-RICARDO 65 Antibody Anti-IA2 Antibody Zinc Transporter 8 Ab Insulin Autoantibody SARS-CoV-2, RNA, NAAT 06/26/22 06/26/22 06/26/22 12:36 13:31 14:30 WBC RBC Hgb Hct MCV MCH MCHC RDW Std Deviation RDW Coeff of John Plt Count MPV VBG pH VBG pCO2 VBG pO2 VBG HCO3 VBG O2 Saturation VBG Base Excess Sodium Potassium Chloride Carbon Dioxide Anion Gap BUN Creatinine Est Cr Clr Drug Dosing Est GFR ( Amer) Est GFR (Non-Af Amer) BUN/Creatinine Ratio Glucose POC Glucose 211 H 157 H 332 H* Estimat Average Glucose Hemoglobin A1c Calcium Phosphorus Magnesium TSH Anti-RICARDO 65 Antibody Anti-IA2 Antibody Zinc Transporter 8 Ab Insulin Autoantibody SARS-CoV-2, RNA, NAAT 06/26/22 06/26/22 06/26/22 14:32 15:26 15:26 WBC RBC Hgb Hct MCV MCH MCHC RDW Std Deviation RDW Coeff of John Plt Count MPV VBG pH VBG pCO2 VBG pO2 VBG HCO3 VBG O2 Saturation VBG Base Excess Sodium 136 Potassium 3.5 Chloride 109 H Carbon Dioxide 21 Anion Gap 6 BUN 8 Creatinine 0.63 Est Cr Clr Drug Dosing 119.1 Est GFR ( Amer) 148.6 Est GFR (Non-Af Amer) 128.2 BUN/Creatinine Ratio 12.7 Glucose 289 H POC Glucose 345 H* Estimat Average Glucose Hemoglobin A1c Calcium 7.7 L Phosphorus 2.3 L D Magnesium 1.5 L TSH Anti-RICARDO 65 Antibody Pending Anti-IA2 Antibody Pending Zinc Transporter 8 Ab Insulin Autoantibody Pending SARS-CoV-2, RNA, NAAT 06/26/22 06/26/22 06/26/22 15:26 15:33 15:34 WBC RBC Hgb Hct MCV MCH MCHC RDW Std Deviation RDW Coeff of John Plt Count MPV VBG pH VBG pCO2 VBG pO2 VBG HCO3 VBG O2 Saturation VBG Base Excess Sodium Potassium Chloride Carbon Dioxide Anion Gap BUN Creatinine Est Cr Clr Drug Dosing Est GFR ( Amer) Est GFR (Non-Af Amer) BUN/Creatinine Ratio Glucose POC Glucose 314 H* 278 H Estimat Average Glucose Hemoglobin A1c Calcium Phosphorus Magnesium TSH Anti-RICARDO 65 Antibody Anti-IA2 Antibody Zinc Transporter 8 Ab Pending Insulin Autoantibody SARS-CoV-2, RNA, NAAT 06/26/22 06/26/22 06/26/22 16:28 17:40 18:28 WBC RBC Hgb Hct MCV MCH MCHC RDW Std Deviation RDW Coeff of John Plt Count MPV VBG pH VBG pCO2 VBG pO2 VBG HCO3 VBG O2 Saturation VBG Base Excess Sodium Potassium Chloride Carbon Dioxide Anion Gap BUN Creatinine Est Cr Clr Drug Dosing Est GFR ( Amer) Est GFR (Non-Af Amer) BUN/Creatinine Ratio Glucose POC Glucose 240 H 261 H 255 H Estimat Average Glucose Hemoglobin A1c Calcium Phosphorus Magnesium TSH Anti-RICARDO 65 Antibody Anti-IA2 Antibody Zinc Transporter 8 Ab Insulin Autoantibody SARS-CoV-2, RNA, NAAT 06/26/22 06/26/22 06/26/22 19:33 19:33 19:37 WBC RBC Hgb Hct MCV MCH MCHC RDW Std Deviation RDW Coeff of John Plt Count MPV VBG pH VBG pCO2 VBG pO2 VBG HCO3 VBG O2 Saturation VBG Base Excess Sodium 134 L Potassium 3.3 L Chloride 108 H Carbon Dioxide 22 Anion Gap 4 BUN 7 Creatinine 0.58 L Est Cr Clr Drug Dosing 129.3 Est GFR ( Amer) > 150.0 Est GFR (Non-Af Amer) 131.8 BUN/Creatinine Ratio 12.1 Glucose 184 H POC Glucose 202 H Estimat Average Glucose Hemoglobin A1c Calcium 7.7 L Phosphorus 3.0 Magnesium 2.0 TSH Anti-RICARDO 65 Antibody Anti-IA2 Antibody Zinc Transporter 8 Ab Insulin Autoantibody SARS-CoV-2, RNA, NAAT 06/26/22 06/26/22 06/26/22 20:31 21:37 21:38 WBC RBC Hgb Hct MCV MCH MCHC RDW Std Deviation RDW Coeff of John Plt Count MPV VBG pH VBG pCO2 VBG pO2 VBG HCO3 VBG O2 Saturation VBG Base Excess Sodium Potassium Chloride Carbon Dioxide Anion Gap BUN Creatinine Est Cr Clr Drug Dosing Est GFR ( Amer) Est GFR (Non-Af Amer) BUN/Creatinine Ratio Glucose POC Glucose 268 H 343 H* 363 H* Estimat Average Glucose Hemoglobin A1c Calcium Phosphorus Magnesium TSH Anti-RICARDO 65 Antibody Anti-IA2 Antibody Zinc Transporter 8 Ab Insulin Autoantibody SARS-CoV-2, RNA, NAAT 06/26/22 06/26/22 06/26/22 22:44 23:20 23:36 WBC RBC Hgb Hct MCV MCH MCHC RDW Std Deviation RDW Coeff of John Plt Count MPV VBG pH VBG pCO2 VBG pO2 VBG HCO3 VBG O2 Saturation VBG Base Excess Sodium 134 L Potassium 3.5 Chloride 108 H Carbon Dioxide 23 Anion Gap 3 BUN 5 L Creatinine 0.58 L Est Cr Clr Drug Dosing 129.3 Est GFR ( Amer) > 150.0 Est GFR (Non-Af Amer) 131.8 BUN/Creatinine Ratio 8.6 L Glucose 135 H POC Glucose 200 H 135 H Estimat Average Glucose Hemoglobin A1c Calcium 7.5 L Phosphorus 3.2 Magnesium TSH Anti-RICARDO 65 Antibody Anti-IA2 Antibody Zinc Transporter 8 Ab Insulin Autoantibody SARS-CoV-2, RNA, NAAT 06/26/22 06/27/22 06/27/22 23:58 00:14 00:34 WBC RBC Hgb Hct MCV MCH MCHC RDW Std Deviation RDW Coeff of John Plt Count MPV VBG pH VBG pCO2 VBG pO2 VBG HCO3 VBG O2 Saturation VBG Base Excess Sodium Potassium Chloride Carbon Dioxide Anion Gap BUN Creatinine Est Cr Clr Drug Dosing Est GFR ( Amer) Est GFR (Non-Af Amer) BUN/Creatinine Ratio Glucose POC Glucose 117 H 113 H 206 H Estimat Average Glucose Hemoglobin A1c Calcium Phosphorus Magnesium TSH Anti-RICARDO 65 Antibody Anti-IA2 Antibody Zinc Transporter 8 Ab Insulin Autoantibody SARS-CoV-2, RNA, NAAT 06/27/22 06/27/22 06/27/22 01:35 02:36 03:43 WBC RBC Hgb Hct MCV MCH MCHC RDW Std Deviation RDW Coeff of John Plt Count MPV VBG pH VBG pCO2 VBG pO2 VBG HCO3 VBG O2 Saturation VBG Base Excess Sodium Potassium Chloride Carbon Dioxide Anion Gap BUN Creatinine Est Cr Clr Drug Dosing Est GFR ( Amer) Est GFR (Non-Af Amer) BUN/Creatinine Ratio Glucose POC Glucose 196 H 203 H 192 H Estimat Average Glucose Hemoglobin A1c Calcium Phosphorus Magnesium TSH Anti-RICARDO 65 Antibody Anti-IA2 Antibody Zinc Transporter 8 Ab Insulin Autoantibody SARS-CoV-2, RNA, NAAT 06/27/22 06/27/22 06/27/22 04:08 04:08 04:08 WBC 6.93 RBC 3.72 L Hgb 11.9 L D Hct 32.9 L MCV 88.4 MCH 32.0 MCHC 36.2 H RDW Std Deviation 36.7 RDW Coeff of John 11.4 L Plt Count 186 MPV 9.7 VBG pH VBG pCO2 VBG pO2 VBG HCO3 VBG O2 Saturation VBG Base Excess Sodium 134 L Potassium 3.2 L Chloride 108 H Carbon Dioxide 24 Anion Gap 2 L BUN 4 L Creatinine 0.55 L Est Cr Clr Drug Dosing 136.4 Est GFR ( Amer) > 150.0 Est GFR (Non-Af Amer) 134.1 BUN/Creatinine Ratio 7.3 L Glucose 195 H POC Glucose Estimat Average Glucose 318 Hemoglobin A1c 12.7 H Calcium 7.5 L Phosphorus 3.0 Magnesium 1.9 TSH Anti-RICARDO 65 Antibody Anti-IA2 Antibody Zinc Transporter 8 Ab Insulin Autoantibody SARS-CoV-2, RNA, NAAT 06/27/22 06/27/22 06/27/22 05:37 07:30 07:54 WBC RBC Hgb Hct MCV MCH MCHC RDW Std Deviation RDW Coeff of John Plt Count MPV VBG pH VBG pCO2 VBG pO2 VBG HCO3 VBG O2 Saturation VBG Base Excess Sodium 136 Potassium 3.4 L Chloride 109 H Carbon Dioxide 24 Anion Gap 3 BUN 4 L Creatinine 0.54 L Est Cr Clr Drug Dosing 138.9 Est GFR ( Amer) > 150.0 Est GFR (Non-Af Amer) 134.9 BUN/Creatinine Ratio 7.4 L Glucose 134 H POC Glucose 173 H 126 H Estimat Average Glucose Hemoglobin A1c Calcium 7.7 L Phosphorus 2.9 Magnesium 1.8 TSH Anti-RICARDO 65 Antibody Anti-IA2 Antibody Zinc Transporter 8 Ab Insulin Autoantibody SARS-CoV-2, RNA, NAAT 06/27/22 09:40 WBC RBC Hgb Hct MCV MCH MCHC RDW Std Deviation RDW Coeff of John Plt Count MPV VBG pH VBG pCO2 VBG pO2 VBG HCO3 VBG O2 Saturation VBG Base Excess Sodium Potassium Chloride Carbon Dioxide Anion Gap BUN Creatinine Est Cr Clr Drug Dosing Est GFR ( Amer) Est GFR (Non-Af Amer) BUN/Creatinine Ratio Glucose POC Glucose 122 H Estimat Average Glucose Hemoglobin A1c Calcium Phosphorus Magnesium TSH Anti-RICARDO 65 Antibody Anti-IA2 Antibody Zinc Transporter 8 Ab Insulin Autoantibody SARS-CoV-2, RNA, NAAT Medications Administered Medications norethindrone 1 mg-ethinyl estradiol 20 mcg (21)-iron 75 mg (7) tablet (08/12 ()) 1 tab PO DAILY 06/26/22 [History Confirmed 06/26/22] Home Medications Acetaminophen (Acetaminophen 325 Mg Tab) 650 mg PO Q4H PRN PRN Reason: Pain (1,2,3) Or Fever Stop: 07/26/22 12:21 Dextrose (Dextrose 50% 50 Ml Syringe) 25 - 50 ml IV UD PRN; Protocol PRN Reason: Hypoglycemia Protocol Stop: 07/26/22 10:56 Last Admin: 06/27/22 00:21 Dose: 25 ml Glucagon (Glucagon For Inj 1 Mg Vial) 1 mg SQ UD PRN; Protocol PRN Reason: Hypoglycemia Protocol Stop: 07/26/22 10:56 Glucose (Glucose 40% Gel 15 Gm Tube) 15 - 30 gm PO UD PRN; Protocol PRN Reason: Hypoglycemia Protocol Stop: 07/26/22 10:56 Glucose (Glucose 10 Tab/Tube) 4 - 8 tab PO UD PRN; Protocol PRN Reason: Hypoglycemia Treatment Stop: 07/26/22 10:56 Insulin Aspart (Insulin Aspart Per Unit) 0 units SC ACHS [facility] Stop: 07/27/22 11:29 Miscellaneous (Carbohydrates For Hypoglycemia ) 15 - 30 gm PO UD PRN PRN Reason: Hypoglycemia Protocol Stop: 07/26/22 10:56 Miscellaneous ( (Patient's Own Oral Contraceptive)) 1 each PO DAILY RICCO Stop: 07/27/22 08:59 Last Admin: 06/27/22 08:00 Dose: 1 each Miscellaneous Information (Pharmacy Glycemic Mgmt Consult) 1 each N/A UD PRN PRN Reason: Consult Stop: 07/26/22 11:31 PG Care Time/CCT Total # of Minutes Spent Total Time Spent with Patient: Total time spent is greater than 50% in coordination of care (as documented) at patient's floor/unit and/or counseling patient:31 [place] [address] Inpt Consult Level 5 Patient Type New Medical Decision Making Moderate Complexity Diagnoses Abnormal EKG R94.31 WPW (Uubmi-Pckijxkdc-Xzhus syndrome) I45.6 Type 1 diabetes mellitus E10.9 DKA (diabetic ketoacidosis) E13.10 Diabetes mellitus complication detail: without coma Diabetes mellitus type: other specified (including STEVEN) Time Spent (min) 60 (1) DKA (diabetic ketoacidosis) Diabetes mellitus complication detail: without coma Diabetes mellitus type: other specified (including STEVEN) Qualified Code(s): E13.10 - Other specified diabetes mellitus with ketoacidosis without coma
--- NOTE | 2022-06-27 12:24 | Hospitalist Progress Note ---
Date of Service June 27, 2022 Assessment & Plan (1) DKA (diabetic ketoacidosis): Plan: -Patient was admitted on account of polydipsia, polyuria, polyphagia -Found to be in DKA, no previous diagnosis of Diabetes -Initially started on Insulin infusion, has now been transitioned to Sub Q and also diabetic diet -Anion gap has closed -Appreciate pharmacy and diabetes education -Patient will need outpatient follow up with endocrinology (2) WPW (Liwtv-Xrvfmubmg-Ejlgo syndrome): Plan: Found on EKG Patient denies palpitations or chest pain Cardiology advice conservative mangement for now follow up closely with electrophysiology outpatient (3) High anion gap metabolic acidosis: Plan: Due to DKA anion gap is now closed Plan continue mgt Admission and Anticipated Discharge Date Admission Date: June 26, 2022 Subjective patient seen and examined, feels overall better, denies palpitations, chest pain Review of Systems Review of Systems: All systems reviewed are negative, apart from the ones contained in the history. Physical Exam Physical Exam: The patient is awake, alert and oriented 3, well developed and well nourished, normocephalic and atraumatic, lying in bed and in no acute distress. HEENT--PERRL, EOMI, mucous membranes and oropharynx mildly dry Neck--supple. No JVD. No bruits. Thyroid normal, trachea midline, no adenopathy. Heart--normal S1 and S2. No murmurs, rubs or gallops. Lungs--clear bilaterally, no respiratory distress, no accessory muscle use. Abdomen--normal bowel sounds and soft. Mild epigastric and left sided abdominal pain Extremities--no cyanosis or clubbing. No edema. Dermatologic--normal skin turgor, normal color, no abnormal lymph nodes, no rash. Neurologic--cranial nerves II through XII grossly intact. Rheumatologic--normal range of motion. Psychiatric--normal affect. Results & Data Results & Data ([facility]) Vital Signs (Past 12 Hours) Vital Signs Temp Pulse Resp BP Pulse Ox O2 Del Method 06/27/22 11:44 98.4 F 89 16 113/71 99 Room Air 06/27/22 08:05 97.9 F 79 18 111/68 97 Room Air 06/27/22 03:09 97.5 F L 79 16 111/68 99 Room Air PG Care Time/CCT Total # of Minutes Spent Total Time Spent with Patient: Total time spent is greater than 50% in coordination of care (as documented) at patient's floor/unit and/or counseling patient: Coding Level of Care Code 84317 Subseq Hosp Care Lvl 2 Diagnoses DKA (diabetic ketoacidosis) E13.10 Diabetes mellitus complication detail: without coma Diabetes mellitus type: other specified (including STEVEN) WPW (Rfnnm-Hhvbkxcxf-Ohzfq syndrome) I45.6 High anion gap metabolic acidosis E87.29 Time Spent (min) 35 (1) DKA (diabetic ketoacidosis) Diabetes mellitus complication detail: without coma Diabetes mellitus type: other specified (including STEVEN) Qualified Code(s): E13.10 - Other specified diabetes mellitus with ketoacidosis without coma
--- NOTE | 2022-06-27 14:02 | Pharmacy Report ---
Pharmacy Glycemic Short Note 2 - Date of Service June 27, 2022 - Glycemic Short BSG Results (Last 24 hours): 06/26/22 06/26/22 06/26/22 14:30 14:32 15:26 Glucose 289 H POC Glucose 332 H* 345 H* 06/26/22 06/26/22 06/26/22 15:33 15:34 16:28 Glucose POC Glucose 314 H* 278 H 240 H 06/26/22 06/26/22 06/26/22 17:40 18:28 19:33 Glucose 184 H POC Glucose 261 H 255 H 06/26/22 06/26/22 06/26/22 19:37 20:31 21:37 Glucose POC Glucose 202 H 268 H 343 H* 06/26/22 06/26/22 06/26/22 21:38 22:44 23:20 Glucose 135 H POC Glucose 363 H* 200 H 06/26/22 06/26/22 06/27/22 23:36 23:58 00:14 Glucose POC Glucose 135 H 117 H 113 H 06/27/22 06/27/22 06/27/22 00:34 01:35 02:36 Glucose POC Glucose 206 H 196 H 203 H 06/27/22 06/27/22 06/27/22 03:43 04:08 05:37 Glucose 195 H POC Glucose 192 H 173 H 06/27/22 06/27/22 06/27/22 07:30 07:54 09:40 Glucose 134 H POC Glucose 126 H 122 H 06/27/22 11:08 Glucose POC Glucose 106 H OUTPATIENT ANTIDIABETIC REGIMEN: * None * HbA1c = 12.7% (06/27/22) ASSESSMENT: * 22 yo F admitted yesterday secondary to DKA. Diabetes is a new diagnosis for this patient and likely is Type 1 in nature. * Initial labs: Serum BSG 549, POC BSG 564, K 3.7, CO2 19, Anion Gap 16, 4+ ketonuria, pH 7.30. * Started on Insulin drip at 0.1 units/kg without bolus per ED provider. Received 2 L NSS in ED then started on NSS + 20 KCl at 125 mL/hr. * Floor labs: Serum BSG 315, POC BSG 392, K 4.1, CO2 19, Anion Gap 10. * Insulin drip and fluids still running. * This morning labs: Serum BSG 134, POC BSG 126, K 3.4, CO2 24, Anion Gap 3. * Insulin drip at 1.3 units/hr and D5 1/2 NS + 20 KCl running at 125 mL/hr. * Will give a dose of Lantus this morning and transition patient off insulin drip. * Starting Novolog based on weight and stress of 2. PLAN FOR INPATIENT GLYCEMIC CONTROL: * Insulin drip discontinued ~ 1030 * Basal insulin * Lantus 25 units SC x 1 this AM * Reassess basal dose in AM * Bolus insulin * NovoLog per scale ACHS or Q6hrs while NPO * Goal Range: Low 110 mg/dL - High 140 mg/dL * Correction Factor: 45 mg/dL/unit * Nutritional / Prandial insulin per carb ratio of 1 unit per 15 grams CHO consumed
--- NOTE | 2022-06-27 14:58 | XCELERA ---
[id number]
--- NOTE | 2022-06-27 16:48 | Electrocardiogram Report ---
Test Reason : Blood Pressure : / mmHG Vent. Rate : 078 BPM Atrial Rate : 078 BPM P-R Int : 102 ms QRS Dur : 116 ms QT Int : 416 ms P-R-T Axes : 049 060 061 degrees QTc Int : 474 ms Normal sinus rhythm Shcpq-pzswjgnvx-hgmvm Abnormal ECG No previous ECGs available Confirmed by Rey Blake ([id number]) on 06/27/2022 4:48:00 PM Referred By: REFERRED SELF Confirmed By:Rey Blake
[2022-06-28 07:37] LABS: Hematocrit (blood only) 34.9 % (34.1-44.9); Hemoglobin 12.6 g/dl (12.0-16.0); Mean Corpuscular Hgb Conc 36.1 g/dL (32.0-36.0); Mean Corpuscular Volume 88.6 fL (80.0-100.0); Mean Platelet Volume 9.7 fL (9.4-12.3); Platelet Count 175 K/uL (130-400); RDW Coefficient of Variation 11.6 % (11.5-14.5); Red Blood Count 3.94 M/uL (3.93-5.22); White Blood Count 5.85 K/ul (4.8-10.8)
[2022-06-28] MEDS: INSULIN ASPART PER UNIT SC SCH ×2 (08:05→11:56)
[2022-06-28] MEDS: JUNEL FE PO SCH (08:12)
[2022-06-28] MEDS ORDERED: LANTUS PER UNIT CHARGE SQ SCH (09:00)
--- NOTE | 2022-06-28 15:17 | Hospitalist Progress Note ---
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 Physical Exam Physical Exam: The patient is awake, alert and oriented 3, well developed and well nourished, normocephalic and atraumatic, lying in bed and in no acute distress. HEENT--PERRL, EOMI, mucous membranes and oropharynx mildly dry Neck--supple. No JVD. No bruits. Thyroid normal, trachea midline, no adenopathy. Heart--normal S1 and S2. No murmurs, rubs or gallops. Lungs--clear bilaterally, no respiratory distress, no accessory muscle use. Abdomen--normal bowel sounds and soft. Mild epigastric and left sided abdominal pain Extremities--no cyanosis or clubbing. No edema. Dermatologic--normal skin turgor, normal color, no abnormal lymph nodes, no rash. Neurologic--cranial nerves II through XII grossly intact. Rheumatologic--normal range of motion. Psychiatric--normal affect. Results & Data Results & Data ([facility]) Vital Signs (Past 12 Hours) Vital Signs Temp Pulse Pulse Resp BP Pulse Ox O2 Del Method 06/28/22 15:12 98.6 F 79 15 108/64 96 06/28/22 08:00 71 06/28/22 11:07 98.6 F 79 15 108/64 96 Room Air 06/28/22 06:59 98.4 F 85 15 104/60 99 Room Air PG Care Time/CCT Total # of Minutes Spent Total Time Spent with Patient: Total time spent is greater than 50% in coordination of care (as documented) at patient's floor/unit and/or counseling patient: Coding Level of Care Code 39971 Subseq Hosp Care Lvl 2 Diagnoses DKA (diabetic ketoacidosis) E13.10 Diabetes mellitus complication detail: without coma Diabetes mellitus type: other specified (including STEVEN) WPW (Rjzjg-Viuwddwwe-Ifulp syndrome) I45.6 High anion gap metabolic acidosis E87.29 Time Spent (min) 35 (1) DKA (diabetic ketoacidosis) Diabetes mellitus complication detail: without coma Diabetes mellitus type: other specified (including STEVEN) Qualified Code(s): E13.10 - Other specified diabetes mellitus with ketoacidosis without coma
--- NOTE | 2022-06-28 15:35 | Discharge Summary ---
Date of Service June 28, 2022 Admission HPI Per Admitting Provider Salomon is a 22 year old female with no previous significant PMH who presented to the [facility] ED from [facility] this am after being found to have a critically high glucose level. In the ED the patient was found to be afebrile, hemodynamically stable and stable on RA. Labs were remarkable for a CBC WNL, glucose of 549, stable renal function, corrected sodium of 138, potassium of 3.7, AG of 16, bicarb of 19, chloride of 96, and UA showing 4+ ketones and 3+ glucose. Prior to admission the patient was give a 1L NSS bolus, started on an NSS infusion with potassium, an insulin drip, and 4 mg IV zofran. At the time of the exam the patient was resting comfortably in bed in no acute distress. She states that for the past 3-4 weeks she has been experiencing progressive polydipsia, polyuria, polyphagia, nausea, vomiting, and feeling "off". She does not have a history of significant PMH, has not had a recent illness, and is only on control for outpatient medications. Her maternal grandfather does have DM I, her father is adopted so they do not know his past family history. This am she went to [facility] for her ongoing symptoms and they found her glucose to be critically high which is why they sent her to the ED. At the time of the exam the patient states that she is feeling well, she has no complaints. I explained that we will start treatment with the insulin infusion and IV fluids until we correct her acidosis and anion gap, then will eventually transition her to basal/bolus sub-Q insulin. I explained that she will be seen by one of our diabetic educators who will help her acclimate to using basal/bolus insulin. Principal Diagnosis New Onset Diabetes mellitus Discharge Exam The patient is awake, alert and oriented 3, well developed and well nourished, normocephalic and atraumatic, lying in bed and in no acute distress. HEENT--PERRL, EOMI, mucous membranes and oropharynx mildly dry Neck--supple. No JVD. No bruits. Thyroid normal, trachea midline, no adenopathy. Heart--normal S1 and S2. No murmurs, rubs or gallops. Lungs--clear bilaterally, no respiratory distress, no accessory muscle use. Abdomen--normal bowel sounds and soft. Mild epigastric and left sided abdominal pain Extremities--no cyanosis or clubbing. No edema. Dermatologic--normal skin turgor, normal color, no abnormal lymph nodes, no rash. Neurologic--cranial nerves II through XII grossly intact. Rheumatologic--normal range of motion. Psychiatric--normal affect. Discharge Data Allergies Allergy/AdvReac Type Severity Reaction Status Date / Time aspirin Allergy Swelling Unverified 06/26/22 11:05 of Lip/Tongue/Throat cephalexin [From Keflex] AdvReac Hives Unverified 06/26/22 11:05 Consultations 06/26/22 10:58 ED Decision to Admit Stat 06/26/22 14:13 Consult Cardiology Routine Hospital Course (1) DKA (diabetic ketoacidosis): -Patient was admitted on account of polydipsia, polyuria, polyphagia -Found to be in DKA, no previous diagnosis of Diabetes -Initially started on Insulin infusion, has now been transitioned to Sub Q and also diabetic diet -Anion gap has closed -Appreciate pharmacy and diabetes education -Patient will need outpatient follow up with endocrinology, this has been arranged for 07/04 (2) WPW (Nifbe-Ifiiiftxa-Hxonx syndrome): Found on EKG Patient denies palpitations or chest pain Cardiology advice conservative mangement for now follow up closely with electrophysiology outpatient (3) High anion gap metabolic acidosis: Due to DKA anion gap is now closed Plan discharge when all supplies are arranged Total Time Total Time Spent Total Time Spent (In Minutes): 35 Discharge Plan Discharge Items Patient Disposition: Home - Self-Care Reason For Visit: HYPERGLYCEMIA Discharge Diagnosis: new onset Diabetes mellitus Activity: Resume your previous activity Non-emergency contact: Primary Care Provider Call non-emergency contact if: you have any medication questions Follow-up/Referrals: Musa Farris PA-C [Physician Scoreboard Operator] - 07/04/22 2:30 pm PCP,NO [Primary Care Provider] - Diet: Carb Count or DM1 Addtl Attending Provider Instructions: please make appointment to follow up with Endocrinology Pending Studies at Discharge: No Stand-Alone Forms: My [employer], Smoking Cessation Medications and DC Order Prescriptions: New insulin glargine [Basaglar KwikPen U-100 Insulin] 100 unit/mL (3 mL) insulin pen 25 unit subcut QAM 30 Days Qty: 7.5 0RF insulin aspart U-100 [Novolog Flexpen U-100 Insulin] 100 unit/mL (3 mL) insulin pen 1 sliding scale dose subcut USEASDIRECTD Qty: 15 0RF Rx Instructions: Glucose range 110-140mg/dl Correction factor 45mg/dl/unit Carb ratio 15g/unit (DME) pen needle, diabetic 32 gauge x 5/32" needle See Rx Instructions .Route Qty: 100 0RF Rx Instructions: As directed (DME) blood-glucose meter [OneTouch Verio Meter] Misc See Rx Instructions .Route Qty: 1 0RF Rx Instructions: As directed (DME) lancing device with lancets [OneTouch Delica Lanc Device] Kit See Rx Instructions .Route Qty: 100 0RF Rx Instructions: As directed (DME) OneTouch Verio test strips Strip See Rx Instructions .Route Qty: 100 0RF Rx Instructions: As directed (DME) Dexcom G6 Transmitter Device See Rx Instructions .Route Qty: 1 0RF Rx Instructions: As directed (DME) Dexcom G6 Sensor Device See Rx Instructions .Route Qty: 3 0RF Rx Instructions: As directed (DME) lancets [OneTouch Delica Lancets] 30 gauge misc See Rx Instructions .Route Qty: 100 0RF Rx Instructions: As directed Continued norethindrone-e.estradiol-iron [08/12 (28)] 1 mg-20 mcg (21)/75 mg (7) tablet 1 tab PO DAILY Discharge Orders: Discharge Order (Routine); Ordered 06/28/22 Ordered By: Aidan Hernandez Admission Data Admit Date/Time: 06/26/22 11:17 Attending Provider: Aidan Hernandez Admit Provider: Nacho Callaway Primary Care Provider: PCP,NO Other Providers: Nacho Callaway ; Rios Zaman Other Interventions: Discharge Summary Assessment (RN) Last Done: 06/28/22 15:12 Coding Level of Care Code D/C DAY MANAGEMENT >30 MINS Diagnoses DKA (diabetic ketoacidosis) E13.10 Diabetes mellitus complication detail: without coma Diabetes mellitus type: other specified (including STEVEN) WPW (Dmykx-Gzrfqblae-Uiklh syndrome) I45.6 High anion gap metabolic acidosis E87.29 Time Spent (min) 35
[2022-07-01 18:19] LABS: Glutamic Acid Decarboxylase 65 50 IU/mL (<5)
[2022-07-06 20:28] LABS: Zinc Transporter 8 (ZnT8) Ab <10 U/mL (<15)
== END 2022-06-28 16:42 | disposition home or self-care (01) | DRG 639 ==
LOC: ED 08:57 → 2E 11:17 → SUATTDRO 11:17 → 2E 12:05